=== PATIENT | male | born 1955 | race Caucasian/White ===

== ENCOUNTER 2018-04-09 13:57 | Inpatient (IN) ==
[2018-04-09] MEDS ORDERED: Piperacil/Tazo 4.5 GM Premix 4.5 GM/100 ML BAG IV.SIG STA (16:43)
[2018-04-09] MEDS ORDERED: Vancomycin Inj 1,000 MG in Sodium Chlor 0.9% Inj 250 ML IV.SIG STA (16:43)
--- NOTE | 2018-04-09 16:59 | ED ---
HPI General Chief complaint: Wound/Laceration Stated complaint: Medical Time Seen by Provider: 04/09/18 16:34 Source: patient and family Mode of arrival: ambulatory Limitations: no limitations History of Present Illness HPI narrative: Patient is a 62-year-old male presenting to the emergency department for evaluation of a diabetic wound. Patient states he kicked something during the night 5 days ago he was away at in [place] for [place]. The day after he developed blisters on the right third and fifth toes. Patient' s had amoxicillin with her and she started giving that to him. He has taken amoxicillin 500 mg twice daily for the last 4 days. Patient went to his deputy court office this morning and was advised to come to the emergency department. Patient states that the redness has extended up his foot quickly. He denies any fever, chills, nausea, vomiting. Patient denies any pain secondary to diabetic neuropathy. He states his diabetes not well controlled, his last A1c was 7.8 and he has not had it checked in quite a while. Symptom onset was fairly sudden. Symptoms are moderate. Onset (ago): day(s) Location: lower extremity Severity: moderate Associated symptoms: Reports denies other symptoms Related Data Home Medications Medication Instructions Recorded Confirmed aspirin 81 mg PO DAILY 04/09/18 04/09/18 canagliflozin-metformin [Invokamet] 1 tab PO BID 04/09/18 04/09/18 duloxetine 60 mg PO DAILY 04/09/18 04/09/18 hawthorn 165 mg PO DAILY 04/09/18 04/09/18 levothyroxine [Synthroid] 150 mcg PO DAILY 04/09/18 04/09/18 Allergies Allergy/AdvReac Type Severity Reaction Status Date / Time No Known Allergies Allergy Verified 04/09/18 14:05 Review of Systems ROS: all other systems reviewed are negative [facility] Medical History Medical History Amputated toe of right foot (Acute) Diabetes (Acute) Hypothyroidism (Acute) Social History Social History Substance History: No History of Abuse Smoking Status: Former smoker How Often Do You Have a Drink Containing Alcohol: 2 to 3 times a week Recent Travel in [facility] within the Last 8 Weeks: No Recent Out of Country Travel within the Last 8 Weeks: No Immunization History Tetanus Immunization: >5 Years Exam Narrative Exam Narrative: GENERAL: Well-developed, well-nourished, alert male. Presenting in no acute distress. SKIN: Focused skin assessment warm/dry. Right third toe has open blister to the plantar aspect from the DIP joint. Right fifth toe has an open blister to the lateral aspect. Erythema noted to the dorsal aspect of the right foot from the third MTP laterally. HEAD: Atraumatic. Normocephalic. EYES: Pupils equal and round. No scleral icterus. No injection or drainage. ENT: No nasal bleeding or discharge. Mucous membranes pink and moist. NECK: Trachea midline. No JVD. CARDIOVASCULAR: Regular rate and rhythm. No murmur appreciated. RESPIRATORY: No accessory muscle use. Clear to auscultation. Breath sounds equal bilaterally. GASTROINTESTINAL: Abdomen soft, non-tender, nondistended. Hepatic and splenic margins not palpable. MUSCULOSKELETAL: No obvious deformities. No clubbing. No cyanosis. No edema. 2+ dorsalis pedal pulse, sluggish capillary refill. NEUROLOGICAL: Awake and alert. No obvious cranial nerve deficits. Motor grossly within normal limits. Normal speech. PSYCHIATRIC: Appropriate mood and affect; insight and judgment normal. Course Initial Documented Vital Signs Temperature 98.5 F 04/09/18 14:03 Pulse Rate 100 H 04/09/18 14:03 Respiratory Rate 20 04/09/18 14:03 Blood Pressure 149/73 H 04/09/18 14:03 Pulse Oximetry 98 04/09/18 14:03 Last Documented Vital Signs Temperature 98.5 F 04/09/18 14:03 Pulse Rate 77 04/09/18 19:35 Respiratory Rate 18 04/09/18 19:35 Blood Pressure 127/74 04/09/18 19:35 Pulse Oximetry 96 04/09/18 19:35 Medical Decision Making RAYRAY Attestation RAYRAY supervised visit: Yes Attestation: I, Dr. Prather, have reviewed the advance practice practitioner's documentation and am in agreement, met with the patient face to face, made the diagnosis, and the medical decision making was done by me. *My assessment and Findings: This patient has some abrasions on his right third and fifth toes and cellulitis mainly on the lateral aspect of the right foot. He is currently afebrile. He is a diabetic. Please see Blaire Gilman NP's note for a more detailed H&P, final diagnosis and disposition MDM Narrative Medical decision making narrative: Patient was sent in by his deputy court for rapidly progressing cellulitis to his right foot. Patient's vital signs are stable, labs and imaging ordered and pending. Patient declined pain medication at this time. IV access was established, patient was placed on alarm security or surveillance monitor continuous pulse oximetry. Blood cultures were obtained, patient will be started on antibiotics empirically. CBC with no acute findings, chemistry with no acute abnormality. CRP is mildly elevated 1.1, sed rate is normal. CT of the right foot shows chronic changes. Cultures are pending. Patient is been resting comfortably, vital signs remained stable. Patient will be admitted at this time. Discussed with Dr. Miller who accepted admit, orders placed. Consult placed to podiatry. Medical Screen Exam Complete: Yes Emergency Medical Condition: Yes Differential Diagnosis Differential Diagnosis: Cellulitis versus osteomyelitis versus metabolic abnormality versus other Medical Records Medical records reviewed: Yes I reviewed the patient's medical records. Lab Data Lab results reviewed: Yes I reviewed the patient's lab results. Result diagrams: 04/09/18 16:53 04/09/18 16:53 Lab Results 04/09/18 04/09/18 04/09/18 Range/Units 16:53 16:53 16:53 WBC 6.8 (4.0-11.0) th/mm3 RBC 4.91 (4.50-5.90) mil/mm3 Hgb 15.1 (13.0-17.0) gm/dL Hct 44.4 (39.0-51.0) % MCV 90.4 (80.0-100.0) fL MCH 30.7 (27.0-34.0) pg MCHC 34.0 (32.0-36.0) % RDW 14.2 (11.6-17.2) % Plt Count 182 (150-450) th/mm3 MPV 11.3 H (7.0-11.0) fL Neut % (Auto) 63.5 (16.0-70.0) % Lymph % (Auto) 22.4 (9.0-44.0) % Calvert % (Auto) 8.8 H (0.0-8.0) % Eos % (Auto) 4.1 H (0.0-4.0) % Baso % (Auto) 1.2 (0.0-2.0) % Neut # (Auto) 4.3 (1.8-7.7) th/mm3 Lymph # (Auto) 1.5 (1.0-4.8) th/mm3 Calvert # (Auto) 0.6 (0.0-0.9) th/mm3 Eos # (Auto) 0.3 (0.0-0.4) th/mm3 Baso # (Auto) 0.1 (0.0-0.2) th/mm3 WBC Differential . Differential Comment Auto diff final ESR 12 (0-20) mm/hr PT 10.0 (9.8-11.6) sec INR 1.0 Ratio APTT 26.2 (23.4-31.7) sec Sodium (136-145) meq/L Potassium (3.5-5.1) meq/L Chloride (98-107) meq/L Carbon Dioxide (21.0-32.0) meq/L Anion Gap (5-15) meq/L BUN (7-18) mg/dL Creatinine (0.60-1.30) mg/dL Estimated GFR (>89) mL/min Random Glucose (74-106) mg/dL Calcium (8.5-10.1) mg/dL Total Bilirubin (0.2-1.0) mg/dL AST (15-37) U/L ALT (12-78) U/L Alkaline Phosphatase (45-117) U/L C-Reactive Protein (0.00-0.30) mg/dL Total Protein (6.4-8.2) g/dL Albumin (3.4-5.0) g/dL 04/09/18 Range/Units 16:53 WBC (4.0-11.0) th/mm3 RBC (4.50-5.90) mil/mm3 Hgb (13.0-17.0) gm/dL Hct (39.0-51.0) % MCV (80.0-100.0) fL MCH (27.0-34.0) pg MCHC (32.0-36.0) % RDW (11.6-17.2) % Plt Count (150-450) th/mm3 MPV (7.0-11.0) fL Neut % (Auto) (16.0-70.0) % Lymph % (Auto) (9.0-44.0) % Calvert % (Auto) (0.0-8.0) % Eos % (Auto) (0.0-4.0) % Baso % (Auto) (0.0-2.0) % Neut # (Auto) (1.8-7.7) th/mm3 Lymph # (Auto) (1.0-4.8) th/mm3 Calvert # (Auto) (0.0-0.9) th/mm3 Eos # (Auto) (0.0-0.4) th/mm3 Baso # (Auto) (0.0-0.2) th/mm3 WBC Differential Differential Comment ESR (0-20) mm/hr PT (9.8-11.6) sec INR Ratio APTT (23.4-31.7) sec Sodium 143 (136-145) meq/L Potassium 4.1 (3.5-5.1) meq/L Chloride 110 H (98-107) meq/L Carbon Dioxide 26.1 (21.0-32.0) meq/L Anion Gap 7 (5-15) meq/L BUN 14 (7-18) mg/dL Creatinine 1.19 (0.60-1.30) mg/dL Estimated GFR 62 L (>89) mL/min Random Glucose 139 H (74-106) mg/dL Calcium 8.6 (8.5-10.1) mg/dL Total Bilirubin 0.3 (0.2-1.0) mg/dL AST 17 (15-37) U/L ALT 25 (12-78) U/L Alkaline Phosphatase 122 H (45-117) U/L C-Reactive Protein 1.10 H (0.00-0.30) mg/dL Total Protein 7.5 (6.4-8.2) g/dL Albumin 3.7 (3.4-5.0) g/dL Imaging Data Radiologist's impression: Foot CT 04/09/18 16:43 CONCLUSION: 1. Chronic changes as above without signs of osteomyelitis or abscess. Chest X-Ray 04/09/18 16:44 CONCLUSION: Minimal atelectasis in the left lung base. Otherwise, the lungs are grossly clear. ECG Data EKG Prior to Arrival: No Attestation: I personally reviewed and interpreted this ECG as follows: Discharge Plan Discharge Disposition Patient Disposition: ED Admit(ED Internal Use Only) Discharge Condition Condition: Stable Discharge Order Discharge Orders: ED Use Only Admit Order (Routine); Ordered 04/09/18 Ordered By: Blaire Taylor Discharge Details Diagnosis: Cellulitis, Diabetes Physicians Team ED Provider: Melissa Prather ED Midlevel Provider: Blaire Taylor Primary Care Provider: Primary Care Thais Muro Attending Provider: Merlin Miller Other Providers: Azeem Bazzi Status ED Status: Admitted Patient
[2018-04-09 17:14] LABS: Baso # (Auto) 0.1 th/mm3 (0.0-0.2); Baso % (Auto) 1.2 % (0.0-2.0); Eos # (Auto) 0.3 th/mm3 (0.0-0.4); Eos % (Auto) 4.1 % (0.0-4.0); Hematocrit 44.4 % (39.0-51.0); Hemoglobin 15.1 gm/dL (13.0-17.0); Lymph # (Auto) 1.5 th/mm3 (1.0-4.8); Lymph % (Auto) 22.4 % (9.0-44.0); Mean Corpuscular Hemoglobin 30.7 pg (27.0-34.0); Mean Corpuscular Volume 90.4 fL (80.0-100.0); Mean Platelet Volume 11.3 fL (7.0-11.0); Mono # (Auto) 0.6 th/mm3 (0.0-0.9); Mono % (Auto) 8.8 % (0.0-8.0); Neut # (Auto) 4.3 th/mm3 (1.8-7.7); Neut % (Auto) 63.5 % (16.0-70.0); Platelet Count 182 th/mm3 (150-450); Red Blood Count 4.91 mil/mm3 (4.50-5.90); Red Cell Distribution Width 14.2 % (11.6-17.2); White Blood Count 6.8 th/mm3 (4.0-11.0)
--- NOTE | 2018-04-09 17:33 | XR ---
EXAM DATE: 04/09/2018 5:30 PM EST AGE/SEX: 62 years / Male INDICATIONS: Fever, lower extremity swelling. CLINICAL DATA: This is the patient's initial encounter. Patient reports that signs and symptoms have been present for 1 day and indicates a pain score of 0/10. MEDICAL/SURGICAL HISTORY: None. None. COMPARISON: None. FINDINGS: A single AP view of the chest demonstrates the lungs to be symmetrically aerated without evidence of mass, infiltrate or effusion. There is some minimal atelectasis in the left lung base. The cardiomedi astinal contours are unremarkable. Osseous structures are intact. CONCLUSION: Minimal atelectasis in the left lung base. Otherwise, the lungs are grossly clear. Electronically signed by: Fernando Hernandez MD Board Certified Radiologist 04/09/2018 5:31 PM EST
[2018-04-09 17:34] LABS: Activated Partial Thrombo Time 26.2 sec (23.4-31.7)
--- NOTE | 2018-04-09 17:42 | CT ---
EXAM DATE: 04/09/2018 5:31 PM EST AGE/SEX: 62 years / Male INDICATIONS: Cellulitis. Right foot pain. CLINICAL DATA: This is the patient's initial encounter. Patient reports that signs and symptoms have been present for 4 - 6 days and indicates a pain score of 3/10. MEDICAL/SURGICAL HISTORY: Diabetes. . Amputated toes on right foot. RADIATION DOSE: 7.29 CTDI (mGy) COMPARISON: No prior exams available for comparison. TECHNIQUE: Multiple contiguous axial images were acquired using a multirow detector CT scanner witho ut contrast. Multiplanar reconstruction was performed in the sagittal and coronal planes. Using auto mated exposure control and adjustment of the mA and/or kV according to patient size, radiation dose w as kept as low as reasonably achievable to obtain optimal diagnostic quality images. DICOM format im age data is available electronically for review and comparison. FINDINGS: No definite fractures, or dislocations are identified There are multiple well-corticated bony density adjacent to medial malleolus near the junction of the talus chronic in nature . No definite lytic or sclerotic l esion is seen. There are no definite signs of osteomyelitis for technique. No definite abscess forma tion is identified. CONCLUSION: 1. Chronic changes as above without signs of osteomyelitis or abscess. Electronically signed by: Alphonse Maher MD Board Certified Radiologist 04/09/2018 5:41 PM EST
[2018-04-09 18:10] LABS: Albumin 3.7 g/dL (3.4-5.0); Anion Gap 7 meq/L (5-15); Aspartate Aminotransferase 17 U/L (15-37); Blood Urea Nitrogen 14 mg/dL (7-18); Calcium 8.6 mg/dL (8.5-10.1); Carbon Dioxide 26.1 meq/L (21.0-32.0); Chloride 110 meq/L (98-107); Glomerular Filtration Rate 62 mL/min (>89); Glucose,Random 139 mg/dL (74-106); Potassium 4.1 meq/L (3.5-5.1); Sodium 143 meq/L (136-145)
[2018-04-09 18:11] LABS: Alanine Aminotransferase 25 U/L (12-78)
[2018-04-09 18:13] LABS: Alkaline Phosphatase 122 U/L (45-117); Total Protein 7.5 g/dL (6.4-8.2)
[2018-04-09] MEDS ORDERED: Acetaminophen 325 MG Tablet PO PRN (19:20)
[2018-04-09] MEDS ORDERED: Dextrose 50% in Water 50 ML Vial IV.PUSH PRN (19:26)
[2018-04-09] MEDS ORDERED: Vancomycin Consult Pharmacy OTHER PRN (19:30)
[2018-04-09] MEDS: Insulin NovoLOG Aspart Correctional Sugar Inj SQ SCH (21:00)
[2018-04-09 21:28] LABS: Hemoglobin A1c 7.7 % (4.3-6.0)
[2018-04-09] MEDS: Senna/Docusate Sodium 8.6/50 MG Tablet PO SCH (22:34)
[2018-04-10] MEDS: Piperacil/Tazo 3.375 GM Premix 3.375 GM/50 ML PIGGYBACK IV.SIG SCH ×5 (00:38→18:55)
[2018-04-10] MEDS: Vancomycin Inj 1,250 MG in Sodium Chlor 0.9% Inj 250 ML IV.SIG SCH ×2 (03:08→15:18)
[2018-04-10 04:51] LABS: Prothrombin Time 10.2 sec (9.8-11.6)
[2018-04-10 04:57] LABS: Baso # (Auto) 0.1 th/mm3 (0.0-0.2); Baso % (Auto) 1.1 % (0.0-2.0); Eos # (Auto) 0.4 th/mm3 (0.0-0.4); Eos % (Auto) 5.2 % (0.0-4.0); Hematocrit 43.3 % (39.0-51.0); Hemoglobin 14.7 gm/dL (13.0-17.0); Lymph % (Auto) 27.3 % (9.0-44.0); Mean Corpuscular Hemoglobin 30.5 pg (27.0-34.0); Mean Corpuscular Volume 89.6 fL (80.0-100.0); Mean Platelet Volume 11.1 fL (7.0-11.0); Mono # (Auto) 0.7 th/mm3 (0.0-0.9); Mono % (Auto) 9.1 % (0.0-8.0); Neut # (Auto) 4.2 th/mm3 (1.8-7.7); Neut % (Auto) 57.3 % (16.0-70.0); Platelet Count 168 th/mm3 (150-450); Red Blood Count 4.83 mil/mm3 (4.50-5.90); Red Cell Distribution Width 13.8 % (11.6-17.2); White Blood Count 7.3 th/mm3 (4.0-11.0)
[2018-04-10 05:10] LABS: Calcium 8.8 mg/dL (8.5-10.1); Carbon Dioxide 26.1 meq/L (21.0-32.0); Potassium 4.1 meq/L (3.5-5.1)
[2018-04-10] MEDS: Levothyroxine 150 MCG Tablet PO SCH (06:37)
[2018-04-10] MEDS ORDERED: Vancomycin Inj 1,000 MG in Sodium Chlor 0.9% Inj 250 ML IV.SIG SCH (07:34)
[2018-04-10] MEDS: Insulin NovoLOG Aspart Correctional Sugar Inj SQ SCH ×4 (08:35→21:40)
[2018-04-10] MEDS: Duloxetine 60 MG DR Capsule PO SCH (09:38)
[2018-04-10] MEDS: Senna/Docusate Sodium 8.6/50 MG Tablet PO SCH ×2 (09:39→21:40)
--- NOTE | 2018-04-10 11:21 | P.HPIM ---
History of Present Illness Primary Care Physician: Dr. Meliza Gonzalez Chief Complaint: "diabetic foot ulcer" History of Present Illness: This is a 62-year-old male patient with past medical history which includes sleep apnea he does use CPAP at night, diabetes mellitus type II with peripheral neuropathy,, hypertension, hyperlipidemia and hypothyroidism. Patient presets to the ER for "diabetic foot ulcer." Patient reports that he kicked something during the night 5 days ago he was away at in [place] for [place]. The day after he developed blisters on the right third and fifth toes. Patient's had amoxicillin with her and she started giving that to him. He has taken amoxicillin 500 mg twice daily for the last 4 days. Patient went to his [employer] office yesterday morning and was advised to come to the emergency department. Patient states that the redness has extended up his foot quickly. He denies any fever, chills, nausea, vomiting. Patient denies any pain secondary to diabetic neuropathy. He states his diabetes not well controlled, his last A1c was 7.8 and he has not had it checked in quite a while. Symptom onset was fairly sudden. Symptoms are moderate. PMH: sleep apnea he does use CPAP at night, diabetes mellitus, hypertension, hyperlipidemia and hypothyroidism PSxH: Amputation of second toe right foot, deviated septum repair, ganglion cyst removed from the right wrist, pervios cardiac catheterization Family medical history: Father had TB Mother had breast cancer with bone cancer Social history Currently employed as an electrical electronics engineer Quit smoking 25+ years ago EtOH use occasionally not daily basis Inpatient Certification Inpatient Certification: I certify that the inpatient services were ordered in accordance with Medicare regulations governing the order. This includes certification that hospital inpatient services are reasonable and necessary and in the case of services not specified as inpatient-only under 42 CFR 419.22(n), that they are appropriately provided as inpatient services in accordance to with the 2-midnight benchmark under 43 CFR 412.3(e) Estimated Total Length of Stay (Days): 3 Plans for Post Hospital Care: Not yet determined Medications and Allergies Allergies Allergy/AdvReac Type Severity Reaction Status Date / Time No Known Allergies Allergy Verified 04/09/18 14:05 Home Medications Medication Instructions Recorded Confirmed Type aspirin 81 mg PO DAILY 04/09/18 04/09/18 History canagliflozin-metformin [Invokamet] 1 tab PO BID 04/09/18 04/09/18 History duloxetine 60 mg PO DAILY 04/09/18 04/09/18 History hawthorn 165 mg PO DAILY 04/09/18 04/09/18 History levothyroxine [Synthroid] 150 mcg PO DAILY 04/09/18 04/09/18 History sitagliptin-metformin [Janumet XR] 1 tab PO DAILY 04/10/18 04/10/18 History Active Medications: Active Medications Acetaminophen (Tylenol) 650 mg PO Q4H PRN PRN Reason: Temp > 100.4 Al Hydroxide/Mg Hydroxide (Milk Of Magnmartin Liq) 30 ml PO Q12H PRN PRN Reason: Mild Constipation Aspirin (Aspirin Chew) 81 mg PO DAILY [facility] Last Admin: 04/10/18 09:38 Dose: 81 mg Dextrose (D50w Vial) 50 ml IV.PUSH UNSCH PRN PRN Reason: PER HYPOGLYCEMIA PROTOCOL Duloxetine HCl (Cymbalta) 60 mg PO DAILY [facility] Last Admin: 04/10/18 09:38 Dose: 60 mg Glucagon (Glucagon Inj) 1 mg OTHER PRN PRN PRN Reason: for Hypoglycemia Protocol Piperacillin/Tazobactam/Dextrose (Zosyn 3.375 Gm Premix) 3.375 gm in 50 mls @ 100 mls/hr IV.SIG Q6H [facility] Last Infusion: 04/10/18 07:36 Dose: Infused Vancomycin HCl 1,250 mg/ (Sodium Chloride) 262.5 mls @ 250 mls/hr IV.SIG Q12H [facility] Last Infusion: 04/10/18 07:36 Dose: Infused Insulin Aspart (Novolog Insulin Correctional Sugar Inj) 0 unit SQ [facility]; Protocol Last Admin: 04/10/18 08:35 Dose: Not Given Levothyroxine Sodium (Synthroid) 150 mcg PO DAILY@0600 [facility] Last Admin: 04/10/18 06:37 Dose: 150 mcg Miscellaneous Information ([facility] Ordered Lab Info) 0 each OTHER ONCE ONE Stop: 04/11/18 20:46 Ondansetron HCl (Zofran Inj) 4 mg IV.PUSH Q6H PRN PRN Reason: NAUSEA OR VOMITING Pharmacy Profile Note (Vancomycin Consult Pharmacy) 1 each OTHER UNSCH PRN PRN Reason: Pharmacy to dose Senna/Docusate Sodium (Cara-Colace) 1 tab PO BID [facility] Last Admin: 04/10/18 09:39 Dose: Not Given Sodium Chloride (Ns Flush) 2 ml IV.FLUSH PRN PRN PRN Reason: FLUSH AFTER USING IV ACCESS Last Admin: 04/09/18 22:34 Dose: 2 ml Sodium Chloride (Ns Flush) 2 ml IV.FLUSH BID [facility] Last Admin: 04/10/18 09:39 Dose: 2 ml Physical Exam Vital signs: Last Vital Signs Temp 97.7 F 04/10/18 08:00 Pulse 80 04/10/18 08:00 Resp 18 04/10/18 08:00 BP 122/71 04/10/18 08:00 Pulse Ox 97 04/10/18 08:00 Narrative: GENERAL: This is a well-nourished, well-developed patient, in no apparent distress. SKIN: dry scaling right third toe, blister right 5th toe CARDIOVASCULAR: Regular rate and rhythm RESPIRATORY: Clear to auscultation. Breath sounds equal bilaterally. GASTROINTESTINAL: Abdomen soft, non-tender, nondistended. Normal active bowel sounds MUSCULOSKELETAL: Extremities without clubbing, cyanosis, or edema. NEURO: Alert & Oriented x4 to person, place, time, situation. Moves all ext x4 Results Labs CBC & Chem 7: 04/10/18 04:07 04/10/18 04:07 Caprini VTE Risk Assessment Caprini VTE Risk Assessment: No/Low Risk (score <= 1) Caprini Risk Assessment Model: Point Value = 1 Point Value = 2 Point Value = 3 Point Value = 5 Age 41-60 Minor surgery BMI > 25 kg/m2 Swollen legs Varicose veins or History of unexplained or recurrent spontaneous Oral contraceptives or hormone replacement Sepsis (< 1 month) Serious lung disease, including pneumonia (< 1 month) Abnormal pulmonary function Acute myocardial infarction Congestive heart failure (< 1 month) History of inflammatory bowel disease Medical patient at bed rest Age 61-74 Arthroscopic surgery Major open surgery (> 45 min) Laparoscopic surgery (> 45 min) Malignancy Confined to bed (> 72 hours) Immobilizing plaster cast Central venous access Age >= 75 History of VTE Family history of VTE Factor V Leiden Prothrombin [id number] Lupus anticoagulant Anticardiolipin antibodies Elevated serum homocysteine Heparin-induced thrombocytopenia Other congenital or acquired thrombophilia Stroke (< 1 month) Elective arthroplasty Hip, pelvis, or leg fracture Acute spinal cord injury (< 1 month) Prophylaxis Regimen: Total Risk Factor Score Risk Level Prophylaxis Regimen 0-1 Low Early ambulation 2 Moderate Order ONE of the following: *Sequential Compression Device (SCD) *Heparin 5000 units SQ BID 3-4 Higher Order ONE of the following medications: *Heparin 5000 units SQ TID *Enoxaparin/Lovenox 40 mg SQ daily (WT < 150 kg, CrCl > 30 mL/min) *Enoxaparin/Lovenox 30 mg SQ daily (WT < 150 kg, CrCl > 10-29 mL/min) *Enoxaparin/Lovenox 30 mg SQ BID (WT < 150 kg, CrCl > 30 mL/min) AND/OR *Sequential Compression Device (SCD) 5 or more Highest Order ONE of the following medications: *Heparin 5000 units SQ TID (Preferred with Epidurals) *Enoxaparin/Lovenox 40 mg SQ daily (WT < 150 kg, CrCl > 30 mL/min) *Enoxaparin/Lovenox 30 mg SQ daily (WT < 150 kg, CrCl > 10-29 mL/min) *Enoxaparin/Lovenox 30 mg SQ BID (WT < 150 kg, CrCl > 30 mL/min) AND *Sequential Compression Device (SCD) Assessment and Plan Plan This is a 62-year-old male patient with past medical history which includes sleep apnea he does use CPAP at night, diabetes mellitus type II with peripheral neuropathy,, hypertension, hyperlipidemia and hypothyroidism. Patient presets to the ER for "diabetic foot ulcer." Patient reports that he kicked something during the night 5 days ago he was away at in [facility]. The day after he developed blisters on the right third and fifth toes. Patient's had amoxicillin with her and she started giving that to him. He has taken amoxicillin 500 mg twice daily for the last 4 days. Patient went to his [employer] office yesterday morning and was advised to come to the emergency department. Patient states that the redness has extended up his foot quickly. He denies any fever, chills, nausea, vomiting. Patient denies any pain secondary to diabetic neuropathy. He states his diabetes not well controlled, his last A1c was 7.8 and he has not had it checked in quite a while. Symptom onset was fairly sudden. Symptoms are moderate. Diabetic ulceration right 3rd and 5th toes Cellulitis RLE Patient started on vancomycin and Zosyn IV, will continue Consult Podiatry, appreciate input Per podiatry - appears to be gangrenous changes to plantar distal tuft of R 3rd toe, but the dorsolateral R 5th toe area seems like more of a dried bulla present that will come off eventually. I do not think there will be surgical intervention during admission, but patient will be followed closely as outpatient with Dr Rubin, his stone polisher machine Consult to vascular surgery Diabetes mellitus type II At home patient takes Invokamet 1 tab PO BID and Janumet 50-1000 1 tablet daily While in hospital will place patient on accu checks ACHS with SSI Diabetic diet Sleep apnea Patient may use his home CPAP Hypothyroidism Will continue patient's home Levothyroxine 150mcg daily DVT prophylaxis with SCDs H&P: Quality VTE Deep Vein Thrombosis/Pulmonary Embolism Present on Admission: No
--- NOTE | 2018-04-10 13:52 | P.CONPOD ---
History of Present Illness Service: podiatry Consult date: 04/10/18 Reason for Consult: right foot gangrene Primary Care Provider: No Primary Care Physician Chief Complaint: "diabetic foot ulcer" History of Present Illness: Patient states he had recently kicked something and scraped his R 3rd and 5th toes and had bleeding. It began to look red and infected and he was concerned and sent to ED by Dr Rubin for further evaluation and IV antibiotics. Review of Systems All other systems reviewed negative except as stated in HPI PMFSH - History History Provided By: Patient - Medical History Medical History: Medical History (Last Reviewed 04/09/18 @ 16:57 by FRANCISCA Landis) Amputated toe of right foot Diabetes Hypothyroidism - Tobacco History Second Hand Smoke Exposure: No Tobacco Use In Past 30 Days: No Smoking Status: Former smoker Tobacco Type: Cigarettes - Alcohol History How Often Do You Have a Drink Containing Alcohol: 2 to 3 times a week - Substance Use History Substance History: No History of Abuse - Travel History Recent Travel in the [place] Within the Last 8 Weeks: No Recent Travel Out of the Country Within the Last 8 Weeks: No - Immunization History Tetanus Immunization: >5 Years Hx Influenza Vaccine This Season: No Medications and Allergies Active Medications: Active Medications Acetaminophen (Tylenol) 650 mg PO Q4H PRN PRN Reason: Temp > 100.4 Al Hydroxide/Mg Hydroxide (Milk Of Alondra Liq) 30 ml PO Q12H PRN PRN Reason: Mild Constipation Aspirin (Aspirin Chew) 81 mg PO DAILY [facility] Last Admin: 04/10/18 09:38 Dose: 81 mg Dextrose (D50w Vial) 50 ml IV.PUSH UNSCH PRN PRN Reason: PER HYPOGLYCEMIA PROTOCOL Duloxetine HCl (Cymbalta) 60 mg PO DAILY [facility] Last Admin: 04/10/18 09:38 Dose: 60 mg Glucagon (Glucagon Inj) 1 mg OTHER PRN PRN PRN Reason: for Hypoglycemia Protocol Piperacillin/Tazobactam/Dextrose (Zosyn 3.375 Gm Premix) 3.375 gm in 50 mls @ 100 mls/hr IV.SIG Q6H [facility] Last Infusion: 04/10/18 07:36 Dose: Infused Vancomycin HCl 1,250 mg/ (Sodium Chloride) 262.5 mls @ 250 mls/hr IV.SIG Q12H [facility] Last Infusion: 04/10/18 07:36 Dose: Infused Insulin Aspart (Novolog Insulin Correctional Sugar Inj) 0 unit SQ ACHS [facility]; Protocol Last Admin: 04/10/18 12:39 Dose: Not Given Levothyroxine Sodium (Synthroid) 150 mcg PO DAILY@0600 [facility] Last Admin: 04/10/18 06:37 Dose: 150 mcg Miscellaneous Information ([facility] Ordered Lab Info) 0 each OTHER ONCE ONE Stop: 04/11/18 20:46 Ondansetron HCl (Zofran Inj) 4 mg IV.PUSH Q6H PRN PRN Reason: NAUSEA OR VOMITING Pharmacy Profile Note (Vancomycin Consult Pharmacy) 1 each OTHER UNSCH PRN PRN Reason: Pharmacy to dose Senna/Docusate Sodium (Cara-Colace) 1 tab PO BID [facility] Last Admin: 04/10/18 09:39 Dose: Not Given Sodium Chloride (Ns Flush) 2 ml IV.FLUSH PRN PRN PRN Reason: FLUSH AFTER USING IV ACCESS Last Admin: 04/09/18 22:34 Dose: 2 ml Sodium Chloride (Ns Flush) 2 ml IV.FLUSH BID [facility] Last Admin: 04/10/18 09:39 Dose: 2 ml Allergies Allergy/AdvReac Type Severity Reaction Status Date / Time No Known Allergies Allergy Verified 04/09/18 14:05 Home Medications Medication Instructions Recorded Confirmed Type aspirin 81 mg PO DAILY 04/09/18 04/09/18 History canagliflozin-metformin [Invokamet] 1 tab PO BID 04/09/18 04/09/18 History duloxetine 60 mg PO DAILY 04/09/18 04/09/18 History hawthorn 165 mg PO DAILY 04/09/18 04/09/18 History levothyroxine [Synthroid] 150 mcg PO DAILY 04/09/18 04/09/18 History sitagliptin-metformin [Janumet XR] 1 tab PO DAILY 04/10/18 04/10/18 History Physical Exam Vital signs: Vital Signs 04/09/18 14:03 04/09/18 16:44 04/09/18 19:35 Temperature 98.5 F Pulse Rate 100 H 72 77 Respiratory Rate 20 18 Blood Pressure 149/73 H 127/74 Pulse Oximetry 98 100 96 04/09/18 20:00 04/10/18 00:00 04/10/18 04:00 Temperature 97.1 F L 97.8 F 97.9 F Pulse Rate 85 80 81 Respiratory Rate 18 18 18 Blood Pressure 135/76 125/62 133/70 Pulse Oximetry 98 94 L 94 L 04/10/18 08:00 04/10/18 12:00 Temperature 97.7 F 97.8 F Pulse Rate 80 74 Respiratory Rate 18 16 Blood Pressure 122/71 117/78 Pulse Oximetry 97 95 Intake & Output 04/09/18 04/10/18 04/10/18 18:59 06:59 18:59 Intake Total 400 / 400 312.5 / 312.5 Balance 400 / 400 312.5 / 312.5 Weight 107.955 kg 113.1 kg Intake: IV 400 / 400 312.5 / 312.5 Zosyn 3.375 GM Premix 3.375 gm 50 / 50 50 / 50 In 50 ml @ 100 mls/hr IV.SIG Q6H [facility] Rx#:[id number] Zosyn 4.5 GM Premix 4.5 gm In 100 / 100 100 ml @ 200 mls/hr IV.SIG STAT [facility] Rx#:[id number] Vancomycin Inj 1,000 MG In NS 250 / 250 Inj 250 ML @ 250 mls/hr IV.SIG STAT [facility] Rx#:[id number] Vancomycin Inj 1,250 MG In NS 262.5 / 262.5 Inj 250 ML @ 250 mls/hr IV.SIG Q12H [facility] Rx#:[id number] Other: # Voids 2 Date of Last Bowel Movement 04/09/18 # Bowel Movements 1 Weight On Admission 107.955 kg Results - Labs CBC & Chem 7: 04/10/18 04:07 04/10/18 04:07 Laboratory Results - last 24 hr 04/09/18 04/09/18 04/09/18 16:53 16:53 16:53 WBC 6.8 RBC 4.91 Hgb 15.1 Hct 44.4 MCV 90.4 MCH 30.7 MCHC 34.0 RDW 14.2 Plt Count 182 MPV 11.3 H Neut % (Auto) 63.5 Lymph % (Auto) 22.4 [place] % (Auto) 8.8 H Eos % (Auto) 4.1 H Baso % (Auto) 1.2 Neut # (Auto) 4.3 Lymph # (Auto) 1.5 [place] # (Auto) 0.6 Eos # (Auto) 0.3 Baso # (Auto) 0.1 WBC Differential . Differential Comment Auto diff final ESR 12 PT 10.0 INR 1.0 APTT 26.2 Sodium Potassium Chloride Carbon Dioxide Anion Gap BUN Creatinine Estimated GFR Random Glucose Hemoglobin A1c Calcium Total Bilirubin AST ALT Alkaline Phosphatase C-Reactive Protein Total Protein Albumin Triglycerides Cholesterol LDL Cholesterol, Calc HDL Cholesterol Cholesterol/HDL Ratio 04/09/18 04/09/18 04/10/18 16:53 16:53 04:07 WBC 7.3 RBC 4.83 Hgb 14.7 Hct 43.3 MCV 89.6 MCH 30.5 MCHC 34.0 RDW 13.8 Plt Count 168 MPV 11.1 H Neut % (Auto) 57.3 Lymph % (Auto) 27.3 [place] % (Auto) 9.1 H Eos % (Auto) 5.2 H Baso % (Auto) 1.1 Neut # (Auto) 4.2 Lymph # (Auto) 2.0 [place] # (Auto) 0.7 Eos # (Auto) 0.4 Baso # (Auto) 0.1 WBC Differential . Differential Comment Auto diff final ESR PT INR APTT Sodium 143 Potassium 4.1 Chloride 110 H Carbon Dioxide 26.1 Anion Gap 7 BUN 14 Creatinine 1.19 Estimated GFR 62 L Random Glucose 139 H Hemoglobin A1c 7.7 H Calcium 8.6 Total Bilirubin 0.3 AST 17 ALT 25 Alkaline Phosphatase 122 H C-Reactive Protein 1.10 H Total Protein 7.5 Albumin 3.7 Triglycerides Cholesterol LDL Cholesterol, Calc HDL Cholesterol Cholesterol/HDL Ratio 04/10/18 04/10/18 04:07 04:07 WBC RBC Hgb Hct MCV MCH MCHC RDW Plt Count MPV Neut % (Auto) Lymph % (Auto) [place] % (Auto) Eos % (Auto) Baso % (Auto) Neut # (Auto) Lymph # (Auto) [place] # (Auto) Eos # (Auto) Baso # (Auto) WBC Differential Differential Comment ESR PT 10.2 INR 1.0 APTT Sodium 143 Potassium 4.1 Chloride 108 H Carbon Dioxide 26.1 Anion Gap 9 BUN 13 Creatinine 1.39 H Estimated GFR 52 L Random Glucose 143 H Hemoglobin A1c Calcium 8.8 Total Bilirubin AST ALT Alkaline Phosphatase C-Reactive Protein Total Protein Albumin Triglycerides 162 H Cholesterol 174 LDL Cholesterol, Calc 113 H HDL Cholesterol 29.0 L Cholesterol/HDL Ratio 6.00 Microbiology 04/09/18 16:05 Blood - Peripheral Aerobic Blood Culture - Preliminary No growth in 1 day 04/09/18 16:05 Blood - Peripheral Anaerobic Blood Culture - Preliminary No growth in 1 day 04/09/18 16:00 Blood - Peripheral Aerobic Blood Culture - Preliminary No growth in 1 day 04/09/18 16:00 Blood - Peripheral Anaerobic Blood Culture - Preliminary No growth in 1 day - Imaging Impressions Foot CT 04/09/18 16:43 CONCLUSION: 1. Chronic changes as above without signs of osteomyelitis or abscess. Chest X-Ray 04/09/18 16:44 CONCLUSION: Minimal atelectasis in the left lung base. Otherwise, the lungs are grossly clear. Assessment and Plan - Assessment (1) Cellulitis of right foot Code(s): L03.115 - Cellulitis of right lower limb Status: Acute (2) Gangrene of toe of right foot Code(s): I96 - Gangrene, not elsewhere classified Status: Acute - Plan Discussed there appears to be gangrenous changes to plantar distal tuft of R 3rd toe, but the dorsolateral R 5th toe area seems like more of a dried bulla present that will come off eventually. Consulted vascular for opinion. Recommend continuing IV antibiotics for a few days and monitoring of the toes. 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
[2018-04-10] MEDS ORDERED: Lidocaine 5% Patch T-DERMAL SCH (14:30)
[2018-04-11] MEDS: Piperacil/Tazo 3.375 GM Premix 3.375 GM/50 ML PIGGYBACK IV.SIG SCH ×4 (01:26→18:11)
[2018-04-11] MEDS: Vancomycin Inj 1,250 MG in Sodium Chlor 0.9% Inj 250 ML IV.SIG SCH ×3 (02:03→15:30)
--- NOTE | 2018-04-11 04:56 | P.PNVS ---
Subjective Subjective/Hospital Course: Referral received Full consult to follow Miguel Angel J Objective Vital Signs / I&O: Vital Signs 04/10/18 08:00 04/10/18 12:00 04/10/18 16:00 Temperature 97.7 F 97.8 F 98.1 F Pulse Rate 80 74 105 H Respiratory Rate 18 16 18 Blood Pressure 122/71 117/78 116/69 Pulse Oximetry 97 95 96 04/10/18 20:00 04/11/18 00:00 Temperature 97.3 F L 98.5 F Pulse Rate 86 99 H Respiratory Rate 22 20 Blood Pressure 146/70 H 127/73 Pulse Oximetry 96 96 Intake & Output 04/10/18 04/10/18 04/11/18 06:59 18:59 06:59 Intake Total 400 / 400 2075.0 / 2075.0 312.5 / 312.5 Balance 400 / 400 2075.0 / 2075.0 312.5 / 312.5 Weight 113.1 kg Intake: IV 400 / 400 675.0 / 675.0 312.5 / 312.5 Zosyn 3.375 GM Premix 3.375 gm 50 / 50 150 / 150 50 / 50 In 50 ml @ 100 mls/hr IV.SIG Q6H [facility] Rx#:[id number] Zosyn 4.5 GM Premix 4.5 gm In 100 / 100 100 ml @ 200 mls/hr IV.SIG STAT [facility] Rx#:[id number] Vancomycin Inj 1,000 MG In NS 250 / 250 Inj 250 ML @ 250 mls/hr IV.SIG STAT [facility] Rx#:[id number] Vancomycin Inj 1,250 MG In NS 525.0 / 525.0 262.5 / 262.5 Inj 250 ML @ 250 mls/hr IV.SIG Q12H [facility] Rx#:[id number] Oral 1400 / 1400 Other: # Voids 2 3 Date of Last Bowel Movement 04/09/18 04/10/18 # Bowel Movements 1 Weight On Admission 107.955 kg Laboratory Results - last 24 hr 04/10/18 04/10/18 04/10/18 04:07 04:07 17:12 WBC 7.3 RBC 4.83 Hgb 14.7 Hct 43.3 MCV 89.6 MCH 30.5 MCHC 34.0 RDW 13.8 Plt Count 168 MPV 11.1 H Neut % (Auto) 57.3 Lymph % (Auto) 27.3 [place] % (Auto) 9.1 H Eos % (Auto) 5.2 H Baso % (Auto) 1.1 Neut # (Auto) 4.2 Lymph # (Auto) 2.0 [place] # (Auto) 0.7 Eos # (Auto) 0.4 Baso # (Auto) 0.1 WBC Differential . Differential Comment Auto diff final Sodium 143 Potassium 4.1 Chloride 108 H Carbon Dioxide 26.1 Anion Gap 9 BUN 13 Creatinine 1.39 H Estimated GFR 52 L POC Glucose 203 H Random Glucose 143 H Calcium 8.8 Triglycerides 162 H Cholesterol 174 LDL Cholesterol, Calc 113 H HDL Cholesterol 29.0 L Cholesterol/HDL Ratio 6.00 04/10/18 21:38 WBC RBC Hgb Hct MCV MCH MCHC RDW Plt Count MPV Neut % (Auto) Lymph % (Auto) [place] % (Auto) Eos % (Auto) Baso % (Auto) Neut # (Auto) Lymph # (Auto) [place] # (Auto) Eos # (Auto) Baso # (Auto) WBC Differential Differential Comment Sodium Potassium Chloride Carbon Dioxide Anion Gap BUN Creatinine Estimated GFR POC Glucose 211 H Random Glucose Calcium Triglycerides Cholesterol LDL Cholesterol, Calc HDL Cholesterol Cholesterol/HDL Ratio Microbiology 04/09/18 16:05 Aerobic Blood Culture - Preliminary Blood - Peripheral No growth in 1 day Anaerobic Blood Culture - Preliminary No growth in 1 day 04/09/18 16:00 Aerobic Blood Culture - Preliminary Blood - Peripheral No growth in 1 day Anaerobic Blood Culture - Preliminary No growth in [address] 04/09/18 16:43 CONCLUSION: 1. Chronic changes as above without signs of osteomyelitis or abscess. Chest X-Ray 04/09/18 16:44 CONCLUSION: Minimal atelectasis in the left lung base. Otherwise, the lungs are grossly clear.
[2018-04-11] MEDS: Levothyroxine 150 MCG Tablet PO SCH (06:07)
[2018-04-11] MEDS: Insulin NovoLOG Aspart Correctional Sugar Inj SQ SCH ×4 (08:41→21:25)
[2018-04-11] MEDS: Duloxetine 60 MG DR Capsule PO SCH (08:53)
[2018-04-11] MEDS: Senna/Docusate Sodium 8.6/50 MG Tablet PO SCH ×2 (08:53→21:25)
--- NOTE | 2018-04-11 10:02 | P.PNIM ---
Subjective Interval history: No new concerns/complaints Physical Exam Vital signs: Last Vital Signs Temp 97.7 F 04/11/18 08:00 Pulse 78 04/11/18 08:00 Resp 15 04/11/18 08:00 BP 134/71 04/11/18 08:00 Pulse Ox 97 04/11/18 08:00 Narrative: GENERAL: This is a well-nourished, well-developed patient, in no apparent distress. SKIN: dry scaling right third toe, blister right 5th toe CARDIOVASCULAR: Regular rate and rhythm RESPIRATORY: Clear to auscultation. Breath sounds equal bilaterally. GASTROINTESTINAL: Abdomen soft, non-tender, nondistended. Normal active bowel sounds MUSCULOSKELETAL: Extremities without clubbing, cyanosis, or edema. NEURO: Alert & Oriented x4 to person, place, time, situation. Moves all ext x4 Results Labs CBC & Chem 7: 04/10/18 04:07 04/10/18 04:07 Assessment and Plan Assessment (1) Cellulitis of right foot: Code(s): L03.115 - Cellulitis of right lower limb Status: Acute (2) Gangrene of toe of right foot: Code(s): I96 - Gangrene, not elsewhere classified Status: Acute Plan This is a 62-year-old male patient with past medical history which includes sleep apnea he does use CPAP at night, diabetes mellitus type II with peripheral neuropathy,, hypertension, hyperlipidemia and hypothyroidism. Patient presets to the ER for "diabetic foot ulcer." Patient reports that he kicked something during the night 5 days ago he was away at in [facility]. The day after he developed blisters on the right third and fifth toes. Patient's had amoxicillin with her and she started giving that to him. He has taken amoxicillin 500 mg twice daily for the last 4 days. Patient went to his educational audiologist office yesterday morning and was advised to come to the emergency department. Patient states that the redness has extended up his foot quickly. He denies any fever, chills, nausea, vomiting. Patient denies any pain secondary to diabetic neuropathy. He states his diabetes not well controlled, his last A1c was 7.8 and he has not had it checked in quite a while. Symptom onset was fairly sudden. Symptoms are moderate. Diabetic ulceration right 3rd and 5th toes Cellulitis RLE Patient started on vancomycin and Zosyn IV, will continue Consult Podiatry, appreciate input Per podiatry - appears to be gangrenous changes to plantar distal tuft of R 3rd toe, but the dorsolateral R 5th toe area seems like more of a dried bulla present that will come off eventually. I do not think there will be surgical intervention during admission, but patient will be followed closely as outpatient with Dr Rubin, his educational audiologist Per podiatry: Santyl qd and dsd with post op shoe Consult to vascular surgery, appreciate assistance Vascular surgery ordered CTA lower extremities to evaluate blood flow Diabetes mellitus type II At home patient takes Invokamet 1 tab PO BID and Janumet 50-1000 1 tablet daily Hold oral diabetic medications While in hospital will place patient on accu checks ACHS with SSI Diabetic diet Sleep apnea Patient may use his home CPAP Hypothyroidism Will continue patient's home Levothyroxine 150mcg daily DVT prophylaxis with SCDs Progress Note: Quality VTE Deep Vein Thrombosis/Pulmonary Embolism Present on Admission: No
[2018-04-11] MEDS ORDERED: Hold Metfromin until further notice OTHER SCH (14:00)
--- NOTE | 2018-04-11 15:02 | P.PNPOD ---
Subjective Interval history: RLE ulcers Dm Physical Exam Vital signs: Vital Signs 04/10/18 16:00 04/10/18 20:00 04/11/18 00:00 Temperature 98.1 F 97.3 F L 98.5 F Pulse Rate 105 H 86 99 H Respiratory Rate 18 22 20 Blood Pressure 116/69 146/70 H 127/73 Pulse Oximetry 96 96 96 04/11/18 08:00 04/11/18 12:00 Temperature 97.7 F 98.3 F Pulse Rate 78 90 Respiratory Rate 15 16 Blood Pressure 134/71 124/74 Pulse Oximetry 97 96 Intake & Output 04/10/18 04/11/18 04/11/18 18:59 06:59 18:59 Intake Total 2075.0 / 2075.0 362.5 / 362.5 50 / 50 Balance 2075.0 / 2075.0 362.5 / 362.5 50 / 50 Weight 113.1 kg Intake: IV 675.0 / 675.0 362.5 / 362.5 50 / 50 Zosyn 3.375 GM Premix 3.375 gm 150 / 150 100 / 100 50 / 50 In 50 ml @ 100 mls/hr IV.SIG Q6H [facility] Rx#:[id number] Vancomycin Inj 1,250 MG In NS 525.0 / 525.0 262.5 / 262.5 Inj 250 ML @ 250 mls/hr IV.SIG Q12H [facility] Rx#:[id number] Oral 1400 / 1400 Other: # Voids 3 2 Date of Last Bowel Movement 04/10/18 04/10/18 Narrative: RLE NVS unchanged R3rd and 5th digit ulcers. No cellulitis Medications and Allergies Active Medications: Active Medications Acetaminophen (Tylenol) 650 mg PO Q4H PRN PRN Reason: Temp > 100.4 Al Hydroxide/Mg Hydroxide (Milk Of Magnesia Liq) 30 ml PO Q12H PRN PRN Reason: Mild Constipation Aspirin (Aspirin Chew) 81 mg PO DAILY [facility] Last Admin: 04/11/18 08:53 Dose: 81 mg Dextrose (D50w Vial) 50 ml IV.PUSH UNSCH PRN PRN Reason: PER HYPOGLYCEMIA PROTOCOL Duloxetine HCl (Cymbalta) 60 mg PO DAILY [facility] Last Admin: 04/11/18 08:53 Dose: 60 mg Glucagon (Glucagon Inj) 1 mg OTHER PRN PRN PRN Reason: for Hypoglycemia Protocol Piperacillin/Tazobactam/Dextrose (Zosyn 3.375 Gm Premix) 3.375 gm in 50 mls @ 100 mls/hr IV.SIG Q6H [facility] Last Infusion: 04/11/18 13:27 Dose: Infused Vancomycin HCl 1,250 mg/ (Sodium Chloride) 262.5 mls @ 250 mls/hr IV.SIG Q12H [facility] Last Admin: 04/11/18 13:27 Dose: 125 mls/hr Insulin Aspart (Novolog Insulin Correctional Sugar Inj) 0 unit SQ ACHS [facility]; Protocol Last Admin: 04/11/18 12:06 Dose: Not Given Levothyroxine Sodium (Synthroid) 150 mcg PO DAILY@0600 [facility] Last Admin: 04/11/18 06:07 Dose: 150 mcg Menthol/Methyl Salicylate ([place] Godinez Oint) 1 applicatio TOPICAL UNSCH PRN PRN Reason: DISCOMFORT Last Admin: 04/10/18 15:41 Dose: 1 applicatio Miscellaneous Information ([facility] Ordered Lab Info) 0 each OTHER ONCE ONE Stop: 04/11/18 20:46 Ondansetron HCl (Zofran Inj) 4 mg IV.PUSH Q6H PRN PRN Reason: NAUSEA OR VOMITING Pharmacy Profile Note (Vancomycin Consult Pharmacy) 1 each OTHER UNSCH PRN PRN Reason: Pharmacy to dose Pharmacy Profile Note (Until Further Notice) 0 each OTHER Q8HR [facility] Senna/Docusate Sodium (Cara-Colace) 1 tab PO BID [facility] Last Admin: 04/11/18 08:53 Dose: Not Given Sodium Chloride (Ns Flush) 2 ml IV.FLUSH PRN PRN PRN Reason: FLUSH AFTER USING IV ACCESS Last Admin: 04/09/18 22:34 Dose: 2 ml Sodium Chloride (Ns Flush) 2 ml IV.FLUSH BID [facility] Last Admin: 04/11/18 08:53 Dose: 2 ml Allergies Allergy/AdvReac Type Severity Reaction Status Date / Time No Known Allergies Allergy Verified 04/09/18 14:05 Home Medications Medication Instructions Recorded Confirmed Type aspirin 81 mg PO DAILY 04/09/18 04/09/18 History canagliflozin-metformin [Invokamet] 1 tab PO BID 04/09/18 04/09/18 History duloxetine 60 mg PO DAILY 04/09/18 04/09/18 History hawthorn 165 mg PO DAILY 04/09/18 04/09/18 History levothyroxine [Synthroid] 150 mcg PO DAILY 04/09/18 04/09/18 History sitagliptin-metformin [Janumet XR] 1 tab PO DAILY 04/10/18 04/10/18 History Results - Labs CBC & Chem 7: 04/10/18 04:07 04/10/18 04:07 Laboratory Results - last 24 hr 04/10/18 04/10/18 04/11/18 17:12 21:38 08:03 POC Glucose 203 H 211 H 177 H 04/11/18 12:05 POC Glucose 191 H Microbiology 04/09/18 16:05 Blood - Peripheral Aerobic Blood Culture - Preliminary No growth in 2 days 04/09/18 16:05 Blood - Peripheral Anaerobic Blood Culture - Preliminary No growth in 2 days 04/09/18 16:00 Blood - Peripheral Aerobic Blood Culture - Preliminary No growth in 2 days 04/09/18 16:00 Blood - Peripheral Anaerobic Blood Culture - Preliminary No growth in 2 days Assessment and Plan - Assessment (1) Cellulitis of right foot Code(s): L03.115 - Cellulitis of right lower limb Status: Acute (2) Gangrene of toe of right foot Code(s): I96 - Gangrene, not elsewhere classified Status: Acute - Plan Pending CTA with Dr Darryl Plascencia surgical intervention per Podiatry Santyl qd and dsd with post op shoe F/U Dr Rubin on d/c OK to d/c per Podiatry after Vascular Clearance.
[2018-04-11] MEDS: Collagenase Oint 30 GM Tube TOPICAL SCH (18:11)
--- NOTE | 2018-04-11 19:15 | MB ---
cc: Aníbal Palma MD DATE: 04/11/2018 CONSULTING PHYSICIAN: Dr. Aníbal Palma, vascular surgery. REASON FOR CONSULTATION: Peripheral vascular disease and gangrene of the toes of the right foot. HISTORY OF PRESENT ILLNESS: This is a 62-year-old gentleman with longstanding diabetes mellitus, states that around [place] in [place], he kicked something and then developed blisters on the fifth toes of the right foot. This did not go away and the patient now has gangrene of both. The question arises about his vascular supply. PAST MEDICAL HISTORY: Diabetes and hypothyroidism as well as hypertension. PAST SURGICAL HISTORY: Amputation of the right . SOCIAL HISTORY: The patient used to smoke for many years, now drinks socially. PHYSICAL EXAMINATION: GENERAL: Reveals a pleasant 62-year-old gentleman. HEENT: Normocephalic. No trauma to the head. Pupils are equal and reactive. Extraocular muscles intact. NECK: Supple. Bilateral carotid pulses. No bruits. CHEST: Bilateral breath sounds. HEART: Regular rate and rhythm. Mild COPD over the apices. Some decreased breath sounds. ABDOMEN: Soft. Active bowel sounds. No rebound, no guarding, no masses. EXTREMITIES: The patient has palpable femoral pulses, but also palpable femoral vessels in the sense that these are firm and calcified popliteal pulses by Doppler, fairly strong popliteal pulses and then dorsalis pedis and posterior tibial pulses on the left. On the right, the patient has strong posterior tibial, but weak dorsalis pedis on palpation. NEUROLOGIC: He is fully intact, indeed has gangrenous changes of the third and fifth toe of the right foot. He did seem to have bled some, so probably there is some blood supply down there. IMPRESSION AND RECOMMENDATIONS: This patient has peripheral vascular disease superimposed on longstanding diabetes mellitus and hypertension. Majority of diabetics will have a small vessel disease distal to the trifurcation which is obviously very hard to treat endovascularly or by an open surgery. At this point, the patient will require a CTA with a runoff to get a baseline study and see which way this goes. Based on this, we will tailor to the best care. Based on my exam this patient does not have however any significant inflow or outflow disease that would require surgical reconstruction but I get occasional surprise on CTA in the meantime, the patient is cleared for podiatric surgery regardless of my workup. Thank you very much for referral. MD DANAY Power/sv/lucero , 05:09 PM , 05:16 PM MONIE
[2018-04-11] MEDS ORDERED: Pharmacy Ordered Lab Info OTHER ONE (20:45)
--- NOTE | 2018-04-12 00:06 | CT ---
EXAM DATE: 04/11/2018 11:50 PM EST AGE/SEX: 62 years / Male INDICATIONS: Peripheral vascular disease. CLINICAL DATA: This is the patient's initial encounter. Patient reports that signs and symptoms have been present for 1 day and indicates a pain score of 5/10. MEDICAL/SURGICAL HISTORY: Diabetes. Hypothyroidism. . Right foot toe amputation RADIATION DOSE: 4.7 CTDI (mGy) COMPARISON: No prior exams available for comparison. TECHNIQUE: Volumetric scanning was performed using a multi-row detector CT scanner during bolus infu kristie of 100 ml Omnipaque 350 (iohexol) nonionic water-soluble contrast as a single exam dose. The data was post processed with a variety of visualization algorithms including full volume maximum inte nsity projection, multi-planar sliding thin slab reformation, curved planar reformation, and surface rendering techniques. Using automated exposure control and adjustment of the mA and/or kV according to patient size, radiation dose was kept as low as reasonably achievable to obtain optimal diagnostic quality images. DICOM format image data is available electronically for review and comparison. FINDINGS: AORTA: Scattered calcified atheromatous plaque throughout the infrarenal aorta and inflow vessels. No stenosis. No aneurysmal change. The celiac, SMA, MELO, and renal arteries are patent. RIGHT LOWER EXTREMITY: Mild scattered calcified atheromatous plaque throughout the outflow vessels wi thout hemodynamically significant stenosis. Three-vessel runoff to the foot. LEFT LOWER EXTREMITY: Mild scattered calcified atheromatous plaque throughout the outflow vessels wit hout a hemodynamically significant stenosis. There is fusiform aneurysmal change involving the poplit eal artery which is with thick mural thrombus. It reaches a maximum diameter of 2.5 cm. Three-vessel runoff to the foot. The anterior tibial artery is dominant. OTHER STRUCTURES: A few scattered colonic diverticula without acute inflammation. The central structu res are otherwise unremarkable. CONCLUSION: 1. Patent inflow, outflow, and runoff bilaterally. 2. 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 3. Colonic diverticulosis. Electronically signed by: Patrick Villasenor MD Board Certified Radiologist 04/12/2018 12:05 AM EST
[2018-04-12] MEDS: Piperacil/Tazo 3.375 GM Premix 3.375 GM/50 ML PIGGYBACK IV.SIG SCH ×2 (00:14→07:21)
[2018-04-12] MEDS: Vancomycin Inj 1,250 MG in Sodium Chlor 0.9% Inj 250 ML IV.SIG SCH (03:47)
[2018-04-12] MEDS: Levothyroxine 150 MCG Tablet PO SCH (05:09)
[2018-04-12] MEDS: Insulin NovoLOG Aspart Correctional Sugar Inj SQ SCH ×2 (07:52→12:09)
--- NOTE | 2018-04-12 08:24 | P.PNIM ---
Subjective Interval history: Patient offers no new concerns/complaints reports feeling well Physical Exam Vital signs: Last Vital Signs Temp 97.8 F 04/12/18 00:00 Pulse 77 04/12/18 00:00 Resp 18 04/12/18 00:00 BP 126/67 04/12/18 00:00 Pulse Ox 97 04/12/18 00:00 Narrative: GENERAL: This is a well-nourished, well-developed patient, in no apparent distress. SKIN: dressing right foot dry and intact CARDIOVASCULAR: Regular rate and rhythm RESPIRATORY: Clear to auscultation. Breath sounds equal bilaterally. GASTROINTESTINAL: Abdomen soft, non-tender, nondistended. Normal active bowel sounds MUSCULOSKELETAL: Extremities without clubbing, cyanosis, or edema. NEURO: Alert & Oriented x4 to person, place, time, situation. Moves all ext x4 Results Labs CBC & Chem 7: 04/10/18 04:07 04/10/18 04:07 Assessment and Plan Assessment (1) Cellulitis of right foot: Code(s): L03.115 - Cellulitis of right lower limb Status: Acute (2) Gangrene of toe of right foot: Code(s): I96 - Gangrene, not elsewhere classified Status: Acute Plan This is a 62-year-old male patient with past medical history which includes sleep apnea he does use CPAP at night, diabetes mellitus type II with peripheral neuropathy,, hypertension, hyperlipidemia and hypothyroidism. Patient presets to the ER for "diabetic foot ulcer." Patient reports that he kicked something during the night 5 days ago he was away at in [facility]. The day after he developed blisters on the right third and fifth toes. Patient's had amoxicillin with her and she started giving that to him. He has taken amoxicillin 500 mg twice daily for the last 4 days. Patient went to his scrap handler office yesterday morning and was advised to come to the emergency department. Patient states that the redness has extended up his foot quickly. He denies any fever, chills, nausea, vomiting. Patient denies any pain secondary to diabetic neuropathy. He states his diabetes not well controlled, his last A1c was 7.8 and he has not had it checked in quite a while. Symptom onset was fairly sudden. Symptoms are moderate. Diabetic ulceration right 3rd and 5th toes Cellulitis RLE Patient started on vancomycin and Zosyn IV, will continue Consult Podiatry, appreciate input Per podiatry - appears to be gangrenous changes to plantar distal tuft of R 3rd toe, but the dorsolateral R 5th toe area seems like more of a dried bulla present that will come off eventually. I do not think there will be surgical intervention during admission, but patient will be followed closely as outpatient with Dr Rubin, his scrap handler Per podiatry: Santyl qd and post op shoe Consult to vascular surgery, appreciate assistance Vascular surgery ordered CTA lower extremities to evaluate blood flow Aorta w/Runoff CTA 04/11/18 1. Patent inflow, outflow, and runoff bilaterally. 2. 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 3. Colonic diverticulosis. Diabetes mellitus type II At home patient takes Invokamet 1 tab PO BID and Janumet 50-1000 1 tablet daily Hold oral diabetic medications While in hospital will place patient on accu checks ACHS with SSI Diabetic diet Sleep apnea Patient may use his home CPAP Hypothyroidism Will continue patient's home Levothyroxine 150mcg daily DVT prophylaxis with SCDs Progress Note: Quality VTE Deep Vein Thrombosis/Pulmonary Embolism Present on Admission: No
--- NOTE | 2018-04-12 08:30 | P.DCO ---
Addendum entered and electronically signed by OLEKSANDR Ngo 10:54: . Original Note: Diagnosis (1) Cellulitis of right foot: Status: Acute (2) Gangrene of toe of right foot: Status: Acute Home Health Nursing Order: Medical education, Signs/symptoms of disease process, Medication education-adverse effect and Wound care and dressing changes Instructions: Dressing per podiatry: Santyl qd and dsd with post op shoe Case Management Consult Case Management Consult-Home Health: Yes I have seen patient Manuel Monzon on 04/12/18. My clinical findings support the need for the requested home health care services because: Infection with risk of complications I certify that my clinical findings support that this patient is homebound because: Unsteady gait/balance
[2018-04-12] MEDS: Duloxetine 60 MG DR Capsule PO SCH (10:10)
[2018-04-12] MEDS: Collagenase Oint 30 GM Tube TOPICAL SCH (10:10)
[2018-04-12] MEDS: Senna/Docusate Sodium 8.6/50 MG Tablet PO SCH (10:10)
--- NOTE | 2018-04-12 10:56 | P.DS ---
DS: Providers Date of admission: 04/09/18 19:42 Primary care physician: No Primary Care Physician Consults: 04/09/18 18:47 Consult to Podiatry Routine Consulting Provider: Azeem Bazzi Preferred Skilled Laborer:: Azeem Bazzi Patient known to:: Azeem Bazzi Reason for Consultation: cellulitis to right foot, diabetes, sent by Dr. Rubin Notified:: Service Spoke with:: SOPHIE Date Notified:: 04/09/18 Time Notified:: 19:16 Ordering Provider: ELLEN 04/10/18 13:44 Consult to Vascular Surgery Routine Consulting Provider: Aníbal Palma Preferred Skilled Laborer:: Aníbal Palma Reason for Consultation: right toes, gangrenous changes after injury vs scab Notified:: Physician Spoke with:: DR. Andrews Date Notified:: 04/10/18 Time Notified:: 14:15 Ordering Provider: CORNELL Brief History from admission: This is a 62-year-old male patient with past medical history which includes sleep apnea he does use CPAP at night, diabetes mellitus type II with peripheral neuropathy,, hypertension, hyperlipidemia and hypothyroidism. Patient presets to the ER for "diabetic foot ulcer." Patient reports that he kicked something during the night 5 days ago he was away at in [facility]. The day after he developed blisters on the right third and fifth toes. Patient's had amoxicillin with her and she started giving that to him. He has taken amoxicillin 500 mg twice daily for the last 4 days. Patient went to his tile sorter office yesterday morning and was advised to come to the emergency department. Patient states that the redness has extended up his foot quickly. He denies any fever, chills, nausea, vomiting. Patient denies any pain secondary to diabetic neuropathy. He states his diabetes not well controlled, his last A1c was 7.8 and he has not had it checked in quite a while. Symptom onset was fairly sudden. Symptoms are moderate. PMH: sleep apnea he does use CPAP at night, diabetes mellitus, hypertension, hyperlipidemia and hypothyroidism PSxH: Amputation of second toe right foot, deviated septum repair, ganglion cyst removed from the right wrist, pervios cardiac catheterization Family medical history: Father had TB Mother had breast cancer with bone cancer Social history Currently employed as an principal cyber engineer Quit smoking 25+ years ago EtOH use occasionally not daily basis DS: Diagnosis Discharge Diagnosis (1) Cellulitis of right foot: Status: Acute (2) Gangrene of toe of right foot: Status: Acute DS: Summary This is a 62-year-old male patient with past medical history which includes sleep apnea he does use CPAP at night, diabetes mellitus type II with peripheral neuropathy,, hypertension, hyperlipidemia and hypothyroidism. Patient presets to the ER for "diabetic foot ulcer." Patient reports that he kicked something during the night 5 days ago he was away at in [facility]. The day after he developed blisters on the right third and fifth toes. Patient's had amoxicillin with her and she started giving that to him. He has taken amoxicillin 500 mg twice daily for the last 4 days. Patient went to his tile sorter office yesterday morning and was advised to come to the emergency department. Patient states that the redness has extended up his foot quickly. He denies any fever, chills, nausea, vomiting. Patient denies any pain secondary to diabetic neuropathy. He states his diabetes not well controlled, his last A1c was 7.8 and he has not had it checked in quite a while. Symptom onset was fairly sudden. Symptoms are moderate. Diabetic ulceration right 3rd and 5th toes Cellulitis RLE Patient started on vancomycin and Zosyn IV, will continue Consult Podiatry, appreciate input Per podiatry - appears to be gangrenous changes to plantar distal tuft of R 3rd toe, but the dorsolateral R 5th toe area seems like more of a dried bulla present that will come off eventually. I do not think there will be surgical intervention during admission, but patient will be followed closely as outpatient with Dr Rubin, his tile sorter Per podiatry: Santyl qd and post op shoe Consult to vascular surgery, appreciate assistance Vascular surgery ordered CTA lower extremities to evaluate blood flow Aorta w/Runoff CTA 04/11/18 1. Patent inflow, outflow, and runoff bilaterally. 2. 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 3. Colonic diverticulosis. Diabetes mellitus type II At home patient takes Invokamet 1 tab PO BID and Janumet 50-1000 1 tablet daily Hold oral diabetic medications While in hospital will place patient on accu checks ACHS with SSI Diabetic diet Sleep apnea Patient may use his home CPAP Hypothyroidism Will continue patient's home Levothyroxine 150mcg daily DVT prophylaxis with SCDs Time Spent with Patient Total time spent providing and/or coordinating discharge services: Quality: VTE Deep Vein Thrombosis/Pulmonary Embolism Present on Admission: No Exam Narrative Exam Narrative: GENERAL: This is a well-nourished, well-developed patient, in no apparent distress. SKIN: dressing right foot dry and intact. Erythema to right foot decreased from admission CARDIOVASCULAR: Regular rate and rhythm RESPIRATORY: Clear to auscultation. Breath sounds equal bilaterally. GASTROINTESTINAL: Abdomen soft, non-tender, nondistended. Normal active bowel sounds MUSCULOSKELETAL: Extremities without clubbing, cyanosis, or edema. NEURO: Alert & Oriented x4 to person, place, time, situation. Moves all ext x4 Results Labs on day of discharge: Labs from last 24 hours 04/12/18 04/12/18 04/11/18 07:48 03:00 19:52 POC Glucose 145 H 221 H Vancomycin Trough 12.5 H 04/11/18 04/11/18 04/10/18 17:04 12:05 08:04 POC Glucose 217 H 191 H 153 H Vancomycin Trough Preliminary micro results at discharge 04/09/18 16:05 Aerobic Blood Culture - Preliminary Blood - Peripheral No growth in 2 days Anaerobic Blood Culture - Preliminary No growth in 2 days 04/09/18 16:00 Aerobic Blood Culture - Preliminary Blood - Peripheral No growth in 2 days Anaerobic Blood Culture - Preliminary No growth in 2 days Impressions ITS Impressions Foot CT 04/09/18 16:43 CONCLUSION: 1. Chronic changes as above without signs of osteomyelitis or abscess. Chest X-Ray 04/09/18 16:44 CONCLUSION: Minimal atelectasis in the left lung base. Otherwise, the lungs are grossly clear. Aorta w/Runoff CTA 04/11/18 06:36 CONCLUSION: 1. Patent inflow, outflow, and runoff bilaterally. 2. 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 3. Colonic diverticulosis.
--- NOTE | 2018-04-12 11:45 | P.PNVS ---
Subjective Subjective/Hospital Course: Referral received Full consult to follow Miguel Angel Andrews 04/12/2018 As noted in my consultation, CTA confirms the clinical findings. Patient has bilateral good inflow with calcified vessels and these are palpable for the same reason in both groins. Distally patient has calcified vessels but no hemodynamically significant stenoses. Some small vessel disease consistent with diabetes Patient does have however a left popliteal artery aneurysm and once the right foot issues are resolved he will have to have the left popliteal artery aneurysm resected. Popliteal aneurysms do not rupture but thrombi will flush distally and eventually occlude the distal blood supply I will have patient come back to my office in about 2 weeks for follow-up at which point we going to see how the right foot is doing and then schedule him for elective aneurysm repair once the issues of right foot are resolved Objective Vital Signs / I&O: Vital Signs 04/11/18 12:00 04/11/18 16:00 04/11/18 20:00 Temperature 98.3 F 97.2 F L 97.8 F Pulse Rate 90 88 84 Respiratory Rate 16 15 18 Blood Pressure 124/74 125/72 140/72 Pulse Oximetry 96 97 96 04/12/18 00:00 04/12/18 08:00 Temperature 97.8 F 97.8 F Pulse Rate 77 80 Respiratory Rate 18 15 Blood Pressure 126/67 120/65 Pulse Oximetry 97 95 Intake & Output 04/11/18 04/12/18 04/12/18 18:59 06:59 18:59 Intake Total 362.5 / 362.5 50 / 50 50 / 50 Balance 362.5 / 362.5 50 / 50 50 / 50 Weight 113.1 kg Intake: IV 362.5 / 362.5 50 / 50 50 / 50 Zosyn 3.375 GM Premix 3.375 gm 100 / 100 50 / 50 50 / 50 In 50 ml @ 100 mls/hr IV.SIG Q6H [facility] Rx#:[id number] Vancomycin Inj 1,250 MG In NS 262.5 / 262.5 Inj 250 ML @ 250 mls/hr IV.SIG Q12H [facility] Rx#:[id number] Other: # Voids 2 Date of Last Bowel Movement 04/10/18 Laboratory Results - last 24 hr 04/10/18 04/11/18 04/11/18 08:04 12:05 17:04 POC Glucose 153 H 191 H 217 H Vancomycin Trough 04/11/18 04/12/18 04/12/18 19:52 03:00 07:48 POC Glucose 221 H 145 H Vancomycin Trough 12.5 H Microbiology 04/09/18 16:05 Aerobic Blood Culture - Preliminary Blood - Peripheral No growth in 3 days Anaerobic Blood Culture - Preliminary No growth in 3 days 04/09/18 16:00 Aerobic Blood Culture - Preliminary Blood - Peripheral No growth in 3 days Anaerobic Blood Culture - Preliminary No growth in 3 days Impressions Aorta w/Runoff CTA 04/11/18 06:36 CONCLUSION: 1. Patent inflow, outflow, and runoff bilaterally. 2. 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 3. Colonic diverticulosis.
[2018-04-12 13:41] VITALS: BP 127/70; PULSE 81; RESP 16; TEMP 97.7; O2SAT 98
[2018-04-12] MEDS ORDERED: Vancomycin Inj 1,500 MG in Sodium Chlor 0.9% Inj 500 ML IV.SIG SCH (15:00)
[2018-04-14] MEDS ORDERED: Pharmacy Ordered Lab Info OTHER ONE (02:45)
== END 2018-04-12 15:00 | disposition home health service (06) | DRG 603 ==
LOC: NEPE 13:57 → NEDA 19:42 → N07 21:24
PROVIDERS: ADMIT Hospitalist; ATTEND Hospitalist
DX: Z79.84 Long term (current) use of oral hypoglycemic drugs; E11.621 Type 2 diabetes mellitus with foot ulcer; Z79.82 Long term (current) use of aspirin; E03.9 Hypothyroidism, unspecified; L03.115 Cellulitis of right lower limb; E78.5 Hyperlipidemia, unspecified; Z87.891 Personal history of nicotine dependence; E11.42 Type 2 diabetes mellitus with diabetic polyneuropathy; E11.52 Type 2 diabetes mellitus with diabetic peripheral angiopathy with gangrene; L97.518 Non-pressure chronic ulcer of other part of right foot with other specified severity; G47.30 Sleep apnea, unspecified; I72.4 Aneurysm of artery of lower extremity; I10 Essential (primary) hypertension; K57.30 Diverticulosis of large intestine without perforation or abscess without bleeding
CPT/HCPCS: 71010; 71045; 73700; 75635; 80048; 80053; 80061; 80202; 82948; 82962; 83036; 85025; 85610; 85651; 85652; 85730; 86140; 87040; 97110; 97116; 97163; 99285; J2543; J3370; J7050; L3250; Q9967

== ENCOUNTER 2018-05-24 07:59 | Inpatient (IN) ==
[2018-05-24] MEDS ORDERED: Chlorhexidine Gluconate 2% 1 Pack (2 Cloths) TOPICAL SCH (08:20)
[2018-05-24] MEDS ORDERED: Sodium Chlor 0.9% Inj 500 ML IV.SIG SCH (09:00)
[2018-05-24 09:10] LABS: Baso # (Auto) 0.1 th/mm3 (0.0-0.2); Baso % (Auto) 1.3 % (0.0-2.0); Eos # (Auto) 0.3 th/mm3 (0.0-0.4); Eos % (Auto) 4.8 % (0.0-4.0); Hematocrit 43.6 % (39.0-51.0); Hemoglobin 14.7 gm/dL (13.0-17.0); Lymph # (Auto) 1.7 th/mm3 (1.0-4.8); Lymph % (Auto) 27.9 % (9.0-44.0); Mean Corpuscular HGB Conc 33.7 % (32.0-36.0); Mean Corpuscular Hemoglobin 30.3 pg (27.0-34.0); Mean Corpuscular Volume 89.9 fL (80.0-100.0); Mean Platelet Volume 11.3 fL (7.0-11.0); Mono # (Auto) 0.5 th/mm3 (0.0-0.9); Mono % (Auto) 7.4 % (0.0-8.0); Neut # (Auto) 3.6 th/mm3 (1.8-7.7); Neut % (Auto) 58.6 % (16.0-70.0); Platelet Count 171 th/mm3 (150-450); Red Blood Count 4.85 mil/mm3 (4.50-5.90); Red Cell Distribution Width 13.9 % (11.6-17.2); White Blood Count 6.2 th/mm3 (4.0-11.0)
[2018-05-24] MEDS: Metoprolol Tartrate 25 MG Tablet PO SCH ×2 (09:17→09:19)
[2018-05-24] MEDS ORDERED: Protamine Sulfate Inj 50 MG/5 ML Vial ONE (09:19)
[2018-05-24] MEDS ORDERED: Heparin 10,000 UNITS/10 ML Vial (for IV use) ONE (09:19)
[2018-05-24] MEDS ORDERED: Heparin - SQ 10,000 UNITS/ML Vial ONE (09:19)
[2018-05-24 09:49] LABS: Platelet Estimate Normal (Normal)
[2018-05-24] MEDS ORDERED: ceFAZolin 2 GM Premix Inj 2 GM/50 ML PIGGYBACK IV.SIG ONE (09:53)
[2018-05-24 09:55] LABS: Albumin 3.5 g/dL (3.4-5.0); Anion Gap 8 meq/L (5-15); Aspartate Aminotransferase 11 U/L (15-37); Blood Urea Nitrogen 14 mg/dL (7-18); Calcium 8.8 mg/dL (8.5-10.1); Carbon Dioxide 25.3 meq/L (21.0-32.0); Chloride 106 meq/L (98-107); Glomerular Filtration Rate 68 mL/min (>89); Glucose,Random 226 mg/dL (74-106); Potassium 4.2 meq/L (3.5-5.1); Sodium 139 meq/L (136-145)
[2018-05-24 09:56] LABS: Alanine Aminotransferase 26 U/L (12-78)
[2018-05-24 09:58] LABS: Alkaline Phosphatase 110 U/L (45-117); Total Protein 7.2 g/dL (6.4-8.2)
[2018-05-24] MEDS ORDERED: Sodium Chlor 0.9% Inj 500 ML IV.CONT ONE (10:23)
[2018-05-24] MEDS ORDERED: Neostigmine Inj 5 MG/5 ML Syringe IV.PUSH ONE (10:23)
[2018-05-24] MEDS ORDERED: Lidocaine PF 1% Inj 5 ML Syringe OTHER ONE (10:23)
[2018-05-24] MEDS ORDERED: Normosol-R pH 7.4 Inj 2,000 ML IV.CONT ONE (10:23)
[2018-05-24] MEDS ORDERED: Sodium Chlor 0.9% Inj 250 ML IV.CONT ONE (10:23)
[2018-05-24] MEDS ORDERED: Glycopyrrolate Inj 1 MG/5 ML Syringe IV.PUSH ONE (10:23)
[2018-05-24] MEDS ORDERED: Phenylephrine/NS 1000 MCG/10ML Syringe IV.PUSH ONE (10:23)
[2018-05-24] MEDS ORDERED: Sugammadex Inj 200 MG/2 ML Vial IV.PUSH ONE (12:46)
[2018-05-24 14:06] LABS: ABG Base Excess -0.1 mmol/L (-2-2); ABG PCO2 40 mmHg (38-42); ABG PO2 154 mmHG (61-120)
--- NOTE | 2018-05-24 14:59 | ECG ---
Date Performed: 05/24/2018 Time Performed: 08:44:36 PTAGE: 62 years EKG: Sinus rhythm NONSPECIFIC T-WAVE ABNORMALITY BORDERLINE ECG NO PREVIOUS TRACING DOCTOR: Andreas Rowe Interpretating Date/Time 05/24/2018 14:57:38
[2018-05-24] MEDS ORDERED: fentaNYL Citrate Inj 100 MCG/2 ML Ampul ONE ×2 (15:42)
[2018-05-24] MEDS ORDERED: Morphine Inj 4 MG/ML Vial ONE (15:42)
[2018-05-24] MEDS ORDERED: Naloxone Inj 0.4 MG/ML Vial IV.PUSH PRN (15:44)
[2018-05-24] MEDS ORDERED: Post-op Orders (for Pharmacy) OTHER ONE (15:44)
[2018-05-24] MEDS ORDERED: Bisacodyl 10 MG Supp RECTAL PRN (15:44)
[2018-05-24] MEDS ORDERED: *morphine SULFATE 4 MG/ML PERIprocedure ONLY ONE (15:59)
[2018-05-24] MEDS: Sod Chloride 0.9% Inj 1,000 ML IV.CONT SCH (16:00)
[2018-05-24] MEDS ORDERED: Insulin NovoLIN Regular Correctional Sugar Inj ONE (16:04)
--- NOTE | 2018-05-24 16:46 | MP ---
cc: Aníbal Palma MD DATE OF OPERATION: 05/24/2018 PREOPERATIVE DIAGNOSIS: Popliteal aneurysm, left leg. POSTOPERATIVE DIAGNOSIS: Popliteal aneurysm, left leg. PROCEDURE PERFORMED: Resection of the popliteal aneurysm with repair and patch angioplasty of popliteal artery. SURGEON: Aníbal Palma MD ANESTHESIA: General. ESTIMATED BLOOD LOSS: 150 mL. INDICATIONS FOR PROCEDURE: This pleasant 67-year-old gentleman underwent workup for unrelated problem of the right leg and at that time, he was found to have about 3 cm in diameter popliteal artery aneurysm on the left. The patient is generally asymptomatic. DESCRIPTION OF PROCEDURE: The patient was prepped and draped in usual fashion and a median incision was made in the left leg just at the level of the knee and just above. It was deepened down to the level of the neurovascular bundle. The proximal popliteal artery is isolated carefully. Small branches are ligated with 2-0 silk and vessel advanced anteriorly. Then, the popliteal aneurysm is encountered. This one is bigger than it was noted on the CTA. It actually measured about 4 cm in diameter. It is also somewhat lower than the CT scan would suggest. The original CT scan suggested the aneurysm to be at the level of the femoral condyles but once we were in there, it was very low down. The aneurysm is now isolated and then distally the popliteal artery was carefully isolated. The popliteal artery was fairly large in size, measuring about 9-10 mm. The vessel loops were placed proximally and distally. Small venous branches were ligated. Of course, popliteal vein is carefully preserved. The patient was given 7000 units of heparin and then the profunda clamps applied proximally and distally and the aneurysm opened. This one is filled with thrombotic material and I am absolutely amazed that none of it had obviously flushed down the leg yet. It was degenerated, kind of decaying material in it. The aneurysm is now resected and vessel observed. In this particular situation, I asked Dr. Kirkpatrick, who was in the vicinity, to look at this situation and render his opinion. In a normal situation, we would open the aneurysm and then place a graft. In this particular situation, the vessel was in very good shape and the aneurysm was saccular and sort of medially located and by resecting it, the remainder of the vessel looked fine. Therefore, we decided the best way to approach would be to place a patch. Bovine 1 x 6 cm patch was chosen and it is sewn in place with running 5-0 Prolene. Blood flow was then reestablished in usual order by flushing the vessel first and then allowing the blood flow to go distally and immediately the patient has palpable dorsalis pedis and posterior tibial pulses and foot is warm. The area was irrigated with copious amounts of saline and then the incision closed with 0 Vicryl in layers and 4-0 Monocryl. The patient was taken to the recovery room in stable condition. MD DANAY Power/kim , 03:54 PM , 04:04 PM
[2018-05-24] MEDS: ceFAZolin Inj 1,000 MG in Sodium Chlor 0.9% Inj 100 ML IV.SIG SCH (18:11)
[2018-05-24] MEDS: Morphine Inj 4 MG/ML Vial IV.PUSH PRN (20:46)
[2018-05-24] MEDS: Senna/Docusate Sodium 8.6/50 MG Tablet PO SCH (20:52)
[2018-05-24] MEDS ORDERED: Dextrose 50% in Water 50 ML Vial IV.PUSH PRN (21:55)
[2018-05-25] MEDS: Insulin NovoLIN Regular Correctional Sugar Inj SQ SCH ×4 (00:36→18:53)
[2018-05-25] MEDS: Sod Chloride 0.9% Inj 1,000 ML IV.CONT SCH ×2 (01:59→18:52)
[2018-05-25] MEDS: ceFAZolin Inj 1,000 MG in Sodium Chlor 0.9% Inj 100 ML IV.SIG SCH ×2 (02:01→08:59)
[2018-05-25] MEDS: Levothyroxine 150 MCG Tablet PO SCH (06:06)
[2018-05-25 06:19] LABS: Baso % (Auto) 0.4 % (0.0-2.0); Eos % (Auto) 0.1 % (0.0-4.0); Hematocrit 37.9 % (39.0-51.0); Hemoglobin 12.8 gm/dL (13.0-17.0); Lymph # (Auto) 1.2 th/mm3 (1.0-4.8); Mean Corpuscular HGB Conc 33.8 % (32.0-36.0); Mean Corpuscular Hemoglobin 30.5 pg (27.0-34.0); Mean Corpuscular Volume 90.1 fL (80.0-100.0); Mean Platelet Volume 10.7 fL (7.0-11.0); Mono # (Auto) 0.7 th/mm3 (0.0-0.9); Mono % (Auto) 7.9 % (0.0-8.0); Neut # (Auto) 6.9 th/mm3 (1.8-7.7); Neut % (Auto) 77.6 % (16.0-70.0); Platelet Count 168 th/mm3 (150-450); Red Blood Count 4.21 mil/mm3 (4.50-5.90); Red Cell Distribution Width 14.1 % (11.6-17.2); White Blood Count 8.9 th/mm3 (4.0-11.0)
[2018-05-25 07:10] LABS: Calcium 7.8 mg/dL (8.5-10.1); Carbon Dioxide 27.6 meq/L (21.0-32.0); Potassium 4.2 meq/L (3.5-5.1)
[2018-05-25] MEDS: Duloxetine 60 MG DR Capsule PO SCH (08:38)
[2018-05-25] MEDS: Senna/Docusate Sodium 8.6/50 MG Tablet PO SCH ×3 (08:39→20:00)
[2018-05-25] MEDS: Morphine Inj 4 MG/ML Vial IV.PUSH PRN ×2 (08:42→15:05)
[2018-05-25] MEDS ORDERED: LIRAGLUTIDE SQ SCH (09:00)
[2018-05-25] MEDS: Collagenase Oint 30 GM Tube TOPICAL SCH (09:03)
[2018-05-25] MEDS: Enoxaparin Inj 40 MG/0.4 ML Syringe SQ SCH (14:12)
--- NOTE | 2018-05-25 18:48 | P.PNCC ---
Subjective Brief History: 05/25/2018 Patient is status post left popliteal aneurysm repair and resection. Incisions clean and dry Foot is warm with palpable dorsalis pedis posterior tibial pulses Patient has been out of bed has some pain in the leg but otherwise doing very well All things equal patient will be discharged tomorrow depending on his PT OT progression Patient has been discharged from the unit but no beds are available on the floor Objective Vital Signs / I&O: Vital Signs 05/24/18 19:00 05/24/18 20:00 05/24/18 20:27 Temperature 97.9 F Pulse Rate 106 H 98 H 96 H Respiratory Rate 22 20 20 Blood Pressure 100/59 L Pulse Oximetry 05/24/18 20:40 05/24/18 20:55 05/24/18 21:00 Temperature Pulse Rate 99 H 98 H Respiratory Rate 18 19 Blood Pressure 107/62 Pulse Oximetry 97 05/24/18 22:00 05/24/18 22:05 05/24/18 23:00 Temperature Pulse Rate 94 H 84 87 Respiratory Rate 14 18 Blood Pressure 102/59 L 109/61 Pulse Oximetry 95 98 05/25/18 00:00 05/25/18 00:15 05/25/18 01:00 Temperature 97.9 F Pulse Rate 90 95 H 96 H Respiratory Rate 15 15 Blood Pressure 105/57 L 121/67 Pulse Oximetry 97 98 05/25/18 01:05 05/25/18 02:00 05/25/18 02:02 Temperature Pulse Rate 92 H 92 H Respiratory Rate 16 15 Blood Pressure 108/60 Pulse Oximetry 98 05/25/18 03:00 05/25/18 04:00 05/25/18 04:05 Temperature 98 F Pulse Rate 93 H 90 Respiratory Rate 18 Blood Pressure 104/56 L 116/62 Pulse Oximetry 97 05/25/18 05:00 05/25/18 06:00 05/25/18 06:10 Temperature Pulse Rate 84 85 84 Respiratory Rate 15 12 Blood Pressure 108/59 L Pulse Oximetry 97 97 05/25/18 06:11 05/25/18 06:40 05/25/18 07:00 Temperature Pulse Rate 87 82 Respiratory Rate 14 17 12 Blood Pressure 118/68 118/67 Pulse Oximetry 97 98 Intake & Output 05/24/18 05/25/18 05/25/18 18:59 06:59 18:59 Intake Total 2550 / 2550 2552 / 2552 Output Total 680 / 680 1530 / 1530 Balance 1870 / 1870 1022 / 1022 Weight 115.6 kg 119.3 kg Intake: IV 50 / 50 1592 / 1592 NS Inj 1,000 ML @ 100 mls/hr IV 1392 / 1392 .CONT .Q10H [facility] Rx#:[id number] Ancef 2 GM Premix Inj 2 gm In 50 / 50 50 ml @ 0 mls/hr IV.SIG .STK- [facility] Rx#:[id number] Ancef Inj 1,000 MG In NS Inj 200 / 200 100 ML @ 200 mls/hr IV.SIG Q8H [facility] Rx#:[id number] Oral 960 / 960 Anesthesia Amount 2500 / 2500 Output: Urine 650 / 650 Estimated Blood Loss 150 / 150 Urine Amount (Catheter) 500 / 500 850 / 850 Indwelling Urethral Catheter 500 / 500 850 / 850 Wound Drainage 30 / 30 # 1 Left Posterior Knee RAISA 30 30 Drain Other: # Voids 2 Date of Last Bowel Movement 05/24/18 05/24/18 05/24/18 Weight On Admission 115.6 kg Result Diagrams: 05/25/18 05:57 05/25/18 05:57 Disinhibition Score: 14.00 Aggression Score: 14.00 Lability Score: 14.00 Agitated Behavior Total Score: 14
[2018-05-26] MEDS: Sod Chloride 0.9% Inj 1,000 ML IV.CONT SCH ×2 (00:04→10:09)
[2018-05-26] MEDS: Insulin NovoLIN Regular Correctional Sugar Inj SQ SCH ×3 (00:04→13:01)
[2018-05-26] MEDS: Levothyroxine 150 MCG Tablet PO SCH (05:25)
[2018-05-26] MEDS: Duloxetine 60 MG DR Capsule PO SCH (08:28)
[2018-05-26] MEDS: Senna/Docusate Sodium 8.6/50 MG Tablet PO SCH (08:28)
[2018-05-26] MEDS: Collagenase Oint 30 GM Tube TOPICAL SCH ×2 (08:28→08:29)
[2018-05-26 12:29] VITALS: BP 137/73; PULSE 106; RESP 16; TEMP 98.6; O2SAT 95
[2018-05-26] MEDS: Enoxaparin Inj 40 MG/0.4 ML Syringe SQ SCH (16:17)
--- NOTE | 2018-05-26 16:27 | P.DCO ---
- Physical Therapy Order: Evaluate and treat, Improve ambulation, Strength and gait training Instructions: No restrictions - Home Health Nursing Order: Signs/symptoms of disease process - Case Management Consult Case Management Consult-Home Health: Yes - Certification I have seen patient Manuel Monzon on 05/26/18. My clinical findings support the need for the requested home health care services because: Deconditioned with increased weakness I certify that my clinical findings support that this patient is homebound because: Post-op weakness
--- NOTE | 2018-05-26 16:38 | P.PNVS ---
Subjective Subjective/Hospital Course: Patient is status post popliteal left aneurysm repair Incision is clean and dry Patient has superb palpable proximal and distal pulses and foot is warm Discharge patient today follow-up with my office 2-3 weeks Objective Vital Signs / I&O: Vital Signs 05/25/18 20:00 05/25/18 20:30 05/25/18 22:00 Temperature 98.7 F 97.7 F Pulse Rate 86 83 Respiratory Rate 16 18 20 Blood Pressure 143/79 H 141/77 H Pulse Oximetry 97 05/26/18 00:00 05/26/18 04:00 05/26/18 06:30 Temperature 97.5 F L 97.7 F Pulse Rate 91 H 102 H Respiratory Rate 20 20 20 Blood Pressure 130/69 133/74 Pulse Oximetry 93 L 94 L 05/26/18 08:00 05/26/18 12:00 Temperature 98.0 F 98.6 F Pulse Rate 99 H 106 H Respiratory Rate 17 16 Blood Pressure 119/65 137/73 Pulse Oximetry 92 L 95 Intake & Output 05/25/18 05/26/18 05/26/18 18:59 06:59 18:59 Intake Total 1368 / 1368 120 / 120 1000 / 1000 Output Total 655 / 655 Balance 713 / 713 120 / 120 1000 / 1000 Weight 119.4 kg Intake: IV 408 / 408 1000 / 1000 NS Inj 1,000 ML @ 100 mls/hr IV 308 / 308 1000 / 1000 .CONT .Q10H [facility] Rx#:[id number] Ancef Inj 1,000 MG In NS Inj 100 / 100 100 ML @ 200 mls/hr IV.SIG Q8H [facility] Rx#:[id number] Oral 960 / 960 120 / 120 Output: Urine 625 / 625 Wound Drainage # 1 Left Posterior Knee RAISA Drain Other: # Voids 2 3 Date of Last Bowel Movement 05/24/18 05/24/18 # Bowel Movements 0 Laboratory Results - last 24 hr 05/25/18 05/25/18 05/26/18 18:02 23:50 05:24 POC Glucose 251 H 219 H 165 H 05/26/18 12:46 POC Glucose 229 H
== END 2018-05-26 17:39 | disposition home or self-care (01) | DRG 253 ==
LOC: HSDI 07:59 → N03 17:20 → N07 05-25 22:00
PROVIDERS: ADMIT Surgery; ATTEND Surgery
CPT/HCPCS: 80048; 80053; 82805; 82948; 82962; 85025; 86850; 86900; 86901; 86923; 88304; 88305; 93005; 97162; 97166; C1768; J0690; J1100; J1644; J1650; J2270; J2370; J2405; J2704; J2710; J2720; J3010; J7030; J7040; J7050; J7120